=== PATIENT | male | born 1950 | race Caucasian/White ===

== ENCOUNTER 2025-04-10 07:19 | Emergency (ER) | payer MEDICARE, SELFPAY ==
[2025-04-10 07:32] VITALS: BP 162/82
--- NOTE | 2025-04-10 08:01 | ED.GENMED ---
History of Present Illness
General
Chief Complaint: Bowel Problem
Source: patient and family
Exam Limitations: none
Time Seen by Provider: 04/10/25 07:39
History of Present Illness
History of Present Illness:
75yoM with a history of atrial fibrillation, non-Hodgkin's lymphoma on Brukinsa (follows with [facility]), and remote history of bladder cancer in remission presenting with his son for evaluation of constipation. Patient has not had a bowel
movement in about 3 to 4 days. He is having pain on the right side of his abdomen. He is also feeling nauseous and has tried to vomit but has been unable to. He has tried multiple dcvg-gbw-ehtzdrn remedies including MiraLAX, suppositories, and a
fleets enema without any improvement. He denies any difficulty urinating, fevers, chest pain, shortness of breath. Only prior abdominal surgery was a bladder tumor removed about 3 years ago.
Past History
Past History
ED Past Medical History: Arrthythmia (Paroxysmal atrial fibrillation)
Social History
Tobacco: Non-smoker
Alcohol: None
Drug: None
Phy Exam
General Physical Exam
General Presentation: well appearing
General Skin: warm and dry
General Habitus: normal and elderly
General Mental: alert
ENT Exam
ENT Exam: normocephalic
Pulmonary Exam
Pulmonary Exam: no respiratory distress
Gastrointestinal Exam
Gastrointestinal Exam: soft and other (Abdomen soft, distended. +Tenderness to R abdomen. No rebound or guarding.)
Neurological Exam
Neurological Exam: alert
Jewell Coma Scale
Eye Opening: Spontaneous
Verbal Response: Oriented
Motor Response: Obeys Commands
GCS Total Score: 15
Skin Exam
Skin Exam: normal color and warm/dry
Psychiatric Exam
Psychiatric Exam: normal mood/affect
Course
Orders/Labs/Results
Orders:
Orders
04/10/25 08:00
CT Abd/pelvis W Iv Cont Urgent
Comment:
Reason For Exam: R sided abd pain, constipation
04/10/25 08:18
Complete Blood Count/With Diff Urgent
Comprehensive Metabolic Panel Urgent
Lipase Urgent
04/10/25 09:49
0.9% Sodium Chloride 1000 ml [Nss] 1,000 ml IV BOLUS
04/10/25 09:58
HYDROmorphone [Dilaudid] 0.5 mg IV NOW STA
Ondansetron Injectable [Zofran] 4 mg IV NOW STA
04/10/25 10:12
Urinalysis Reflex To Culture Urgent
Date Specimen was Collected: 04/10/25
Time Specimen was Collected: 09:57
Urine Microscopic Reflex Cult Urgent
Abnormal Lab Results
04/10/25 04/10/25
08:18 10:12
WBC 17.2 H 10^3/uL
(4.8-10.8)
MPV 12.2 H fL
(7.4-10.4)
Abs Immat Gran (auto) 0.1 H 10^3/uL
(0-0.05)
Absolute Neuts (auto) 13.6 H 10^3/uL
(1.4-6.5)
Absolute Monos (auto) 1.7 H 10^3/uL
(0.1-0.6)
Neutrophils % 79.2 H %
(42.2-75.2)
Lymphocytes % 10.4 L %
(20.5-51.1)
Monocytes % 9.7 H %
(1.7-9.3)
Chloride 108 H mmol/L
(98-107)
BUN 21 H mg/dl
(9-20)
Creatinine 1.6 H mg/dL
(0.7-1.3)
Glucose 181 H mg/dl
(70-99)
Ur Occult Blood Reflex 3+ A
(Negative)
Urine RBC 7-10 A /HPF
(0-2)
Urine Bacteria (Reflex) Few A
(Negative)
Urine Glucose 2+ A
(Negative)
Urine Albumin (Reflex) 2+ A
(Neg - Trace)
04/10/25 08:18
04/10/25 08:18
Vital Signs
Initial and Last Documented VS:
Initial Vital Signs
Temp Pulse Resp BP Pulse Ox
98.0 F 71 16 162/82 98
04/10/25 07:32 04/10/25 07:32 04/10/25 07:32 04/10/25 07:32 04/10/25 07:32
Last Documented Vital Signs
Temp Pulse Resp BP Pulse Ox
98.0 F 71 16 159/82 89
04/10/25 07:32 04/10/25 07:32 04/10/25 07:32 04/10/25 11:00 04/10/25 12:00
MDM/Problems Addressed
Differential Diagnosis Includes:
75yoM here with constipation x 3-4 days. Also c/o R sided abd pain and nausea. No relief with OTC medications. He is mildly hypertensive with otherwise stable vitals. He is non-toxic appearing. No signs of peritonitis on abdominal exam. Differential
diagnosis includes but is not limited to: constipation, appendicitis, diverticulitis, SBO
Initial ED plan: Check abdominal labs and CT abdomen.
*Critical Care Note
Total Time (30-74mins, 75-104mins- exclusive of procedures): Not Applicable
Update Note
Update Note:
Imaging shows a 3 mm stone at the R UVJ with hydronephrosis. There is also moderate retroperitoneal lymphadenopathy likely 2/2 known non-Hodgkin's lymphoma. Patient and son notified of this and a copy of the radiology report was given to patient.
Creatinine is 1.6. I was able to review patient's recent BMP from February 2025 and creatinine was 1.23 at that time. UA with 3+ blood without signs of infection. Pain controlled on reassessment. No indication for hospitalization. Supportive care
discussed including hydration, urine straining, and Flomax. Prescriptions also provided for Zofran and oxycodone. Family was able to secure a follow-up appointment with his urologist on April 15. Strict ED return precautions reviewed. Patient
discharged in stable condition.
ED Attending Note
-
Portions of this chart may have been created with voice recognition software.� Occasional wrong word or��sound alike� substitutions may have occurred due to the inherent limitations of voice recognition software.
Discharge Plan
Departure
Patient Disposition: Home (Routine Discharge)
Date of Disposition: 04/10/25
Time of Disposition: 11:30
Patient with high blood pressure during this ER visit?: Yes
Discharge Problem:
Calculus of distal right ureter
Instructions: How to Strain Your Urine, Kidney stones in adults - ED discharge instructions
Prescriptions:
New
tamsulosin [Flomax] 0.4 mg capsule
0.4 mg PO HS Qty: 7 0RF
ondansetron 4 mg tablet,disintegrating
4 mg PO Q6H PRN (Reason: nausea and vomiting) Qty: 20 0RF
oxycodone 5 mg tablet
5 mg PO Q6H PRN (Reason: Pain) Qty: 12 0RF
No Action
diltiazem HCl [Cardizem CD] 120 mg capsule,extended release 24hr
120 mg PO DAILY Qty: 30 0RF
Eliquis 5 mg tablet
5 mg PO BID Qty: 60 0RF
Referrals:
Edilia Davenport DO [Family Provider, Family Practice]
Activity Restrictions/Additional Instructions:
Drink plenty of fluids and hydrate. Take Flomax and strain your urine until stone has passed.
Take Tylenol 650 mg every 6 hours for pain. Take oxycodone as needed for severe breakthrough pain. Take Zofran as needed for nausea.
Please follow-up with urology. Return to the ER with any worsening symptoms including fevers or uncontrolled pain.
Interventions
Interventions:
*Risk Screen - Suicide Last Done: 04/10/25 07:32
*General Assessment Last Done: 04/10/25 08:23
*Neglect/Abuse Screening Last Done: 04/10/25 07:32
*Nursing Disposition Last Done: 04/10/25 12:04
BX-Bybqav-Sgblttwulg Assessment Last Done: 04/10/25 08:23
Discharge Date and Time
Discharge Date/Time: 04/10/25 12:04
Print Language: TURKISH
[2025-04-10 08:25] LABS: % Basophils 0.1 % (0-2); % Eosinophils 0.1 % (0-6); % Immature Granulocytes 0.5 % (0-0.5); % Lymphocytes 10.4 % (20.5-51.1); % Monocytes 9.7 % (1.7-9.3); % Neutrophils 79.2 % (42.2-75.2); Absolute Immature Granulocytes 0.1 10^3/uL (0-0.05); Absolute Lymphocytes 1.8 10^3/uL (1.2-3.4); Absolute Monocytes 1.7 10^3/uL (0.1-0.6); Absolute Neutrophils 13.6 10^3/uL (1.4-6.5); Hematocrit 40.5 % (39.0-52.0); Hemoglobin 13.9 g/dL (13.0-18.0); Mean Corp Hgb Conc. 34.3 g/dL (33.0-37.0); Mean Corpuscular Hgb 27.5 pg (27.0-31.0); Mean Platelet Volume 12.2 fL (7.4-10.4); Nucleated Red Blood Cells % 0 % (-); Platelet Count 181 10^3/uL (130-400); Red Blood Cell Count 5.06 10^6/uL (4.70-6.10); Red Cell Dist. Width 13.9 % (11.5-14.5); White Blood Cell Count 17.2 10^3/uL (4.8-10.8)
[2025-04-10 08:50] LABS: ALT (SGPT) 43 U/L (0-50); AST (SGOT) 31 U/L (17-59); Albumin 4.5 g/dl (3.5-5.0); Alkaline Phosphatase 46 U/L (38-126); Blood Urea Nitrogen 21 mg/dl (9-20); Carbon Dioxide 23 mmol/L (22-30); Chloride 108 mmol/L (98-107); Glucose 181 mg/dl (70-99); Potassium 4.2 mmol/L (3.5-5.1); Sodium 139 mmol/L (135-145); Total Bilirubin 1.2 mg/dl (0.2-1.3); Total Protein 7.5 g/dl (6.3-8.2); eGFR 44.93
[2025-04-10 09:34] LABS: Lipase 62 U/L (23-300)
[2025-04-10 10:04] VITALS: BP 172/83
[2025-04-10] MEDS: NSS 1000 IV (10:05)
[2025-04-10] MEDS: ZOFRAN 4 MG IV (10:05)
[2025-04-10] MEDS: DILAUDID 0.5 MG IV (10:06)
[2025-04-10 10:28] LABS: Urine Albumin 2+ (Neg - Trace); Urine Bilirubin Negative (Negative); Urine Character Clear (Clear); Urine Color Yellow; Urine Glucose 2+ (Negative); Urine Ketone Negative (Negative); Urine Leukocyte Negative (Negative); Urine Nitrite Negative (Negative); Urine Occult Blood 3+ (Negative); Urine Specific Gravity 1.015 (<1.030); Urine Urobilinogen Negative (Neg - 1+)
[2025-04-10 10:44] LABS: Urine Urothelial Cell 0-2 /LPF (FEW)
[2025-04-10 10:46] LABS: Urine Bacteria Few (Negative); Urine White Cell 0-2 /HPF (0-5)
[2025-04-10 11:00] VITALS: BP 159/82
== END 2025-04-10 12:04 | disposition home or self-care (01) ==
LOC: EMR 07:19
PROVIDERS: Physician Assistant; EMERGENCY PHYSICIAN Emergency Medicine; FAMILY PHYSICIAN Family Medicine
DX: K59.00 Constipation, unspecified (principal); R10.9 Unspecified abdominal pain; R11.0 Nausea; N13.2 Hydronephrosis with renal and ureteral calculous obstruction; R59.0 Localized enlarged lymph nodes; R03.0 Elevated blood-pressure reading, without diagnosis of hypertension; I48.0 Paroxysmal atrial fibrillation; C85.9A Non-Hodgkin lymphoma, unspecified, in remission; Z79.899 Other long term (current) drug therapy; Z79.01 Long term (current) use of anticoagulants; Z85.51 Personal history of malignant neoplasm of bladder
CPT/HCPCS: 99284; 96375; 96361; 96374; 74177; 80053; 81003; 81015; 83690; 85025; Q9967